=== PATIENT | male | born 1955 ===

== ENCOUNTER 2023-05-18 12:00 | Emergency (ER) | payer MEDICARE, BC ==
[~2023-05-18] VITALS: Ht 170.2 cm; Wt 108.9 kg
[2023-05-18] MEDS ORDERED: DEXA4 PO (12:19)
[2023-05-18] MEDS ORDERED: PRAVASTATIN SOD20 MG PO (12:20)
[2023-05-18] MEDS ORDERED: ONDA4ODT MM (12:20)
[2023-05-18] MEDS ORDERED: DIAZEPAM5 M2 PO (12:20)
[2023-05-18] MEDS ORDERED: OMEP20ER PO (12:21)
[2023-05-18 13:08] LABS: Hematocrit 46.6 % (37.0-53.0); Hemoglobin 15.2 g/dL (13.5-17.5); Mean Corpuscular HGB 31.9 pg (26.0-34.0); Mean Corpuscular HGB Conc 32.6 g/dL (31.5-36.5); Mean Corpuscular Volume 98 fL (80-100); Mean Platelet Volume 9.3 fL (9.1-12.4); Platelet Count 337 K/mm3 (150-400); RDW Coefficient Variation 13.7 % (11.7-14.2); Red Blood Cell Count 4.77 M/mm3 (4.30-5.90); White Blood Cell Count 12.79 K/mm3 (4.00-11.30)
[2023-05-18 13:29] LABS: BAND PERCENT MAN 1 % (0-8); BASOPHILS PERCENT MAN 0 % (0-2); EOSINOPHILS PERCENT MAN 0 % (0-6); LYMPHOCYTES ABSOLUTE MAN 0.38 K/mm3 (0.84-5.20); LYMPHOCYTES PERCENT MAN 3 % (21-46); MONOCYTES ABSOLUTE MAN 1.27 K/mm3 (0.16-1.47); MONOCYTES PERCENT MAN 10 % (4-13); NEUTROPHILS ABSOLUTE MAN 11.12 K/mm3 (1.96-9.15); SEG NEUTROPHILS PERCENT MAN 86 % (41-73); TOTAL CELLS COUNTED 100
[2023-05-18 13:34] LABS: Bun/Creatinine Ratio 28.2 (12.0-20.0); Calcium, Blood 8.9 mg/dL (8.5-10.1); Creatinine, Blood 0.67 mg/dL (0.60-1.20); Potassium, Blood 4.1 mmol/L (3.5-5.5)
[2023-05-18 14:00] VITALS: BP 128/72
== END 2023-05-18 14:31 | disposition home or self-care (01) ==
LOC: ER 12:00
PROVIDERS: Emergency Medicine
DX: R56.9 Unspecified convulsions (principal)
CPT/HCPCS: 80048; 85025; 93005; 93010

== ENCOUNTER 2023-07-06 07:31 | Inpatient (IN) | payer MEDICARE, BC ==
[~2023-07-06] VITALS: Ht 172.7 cm; Wt 114.9 kg
[2023-07-06] VITALS (18 sets, daily range): BP systolic 84–113; BP diastolic 52–69
[~2023-07-06 07:31] MED LIST: DEXA4 PO; DIAZEPAM5 M2 PO; OMEP20ER PO; ONDA4ODT MM; PRAVASTATIN SOD20 MG PO
[2023-07-06 08:34] LABS: BASOPHILS ABSOLUTE AUTO 0.03 K/mm3 (0.00-0.23); BASOPHILS PERCENT AUTO 1 % (0-2); EOSINOPHILS ABSOLUTE AUTO 0.04 K/mm3 (0.00-0.68); EOSINOPHILS PERCENT AUTO 1 % (0-6); Hematocrit 38.1 % (37.0-53.0); Hemoglobin 12.4 g/dL (13.5-17.5); IMMATURE GRAN ABSOLUTE AUTO 0.08 K/mm3 (0.00-0.10); IMMATURE GRAN PERCENT AUTO 1 % (0-1); LYMPHOCYTES ABSOLUTE AUTO 1.73 K/mm3 (0.84-5.20); LYMPHOCYTES PERCENT AUTO 29 % (21-46); MONOCYTES ABSOLUTE AUTO 0.88 K/mm3 (0.16-1.47); MONOCYTES PERCENT AUTO 15 % (4-13); Mean Corpuscular HGB 32.8 pg (26.0-34.0); Mean Corpuscular HGB Conc 32.5 g/dL (31.5-36.5); Mean Corpuscular Volume 101 fL (80-100); Mean Platelet Volume 8.8 fL (9.1-12.4); NEUTROPHILS ABSOLUTE AUTO 3.23 K/mm3 (1.96-9.15); NEUTROPHILS PERCENT AUTO 54 % (41-73); Platelet Count 339 K/mm3 (150-400); RDW Coefficient Variation 14.6 % (11.7-14.2); RDW Standard Deviation 53.3 fL (35.1-46.3); Red Blood Cell Count 3.78 M/mm3 (4.30-5.90); White Blood Cell Count 5.99 K/mm3 (4.00-11.30)
[2023-07-06 08:49] LABS: Base Excess Venous 13.2 mmol/L; Bicarbonate Venous 34.1 mmol/L (24.0-30.0); PCO2 Venous 74.7 mmHg (38-42); pH Blood Venous 7.33 (7.34-7.37)
[2023-07-06 09:20] LABS: Albumin, Blood 3.1 g/dL (3.4-5.0); Bilirubin, Total 0.5 mg/dL (0.1-1.0); Bun/Creatinine Ratio 14.2 (12.0-20.0); Calcium, Blood 8.9 mg/dL (8.5-10.1); Creatinine, Blood 0.71 mg/dL (0.60-1.20); Globulin, Blood 3.2 g/dL (2.2-4.0); Potassium, Blood 3.5 mmol/L (3.5-5.5); Total Protein, Blood 6.3 g/dL (6.4-8.2)
[2023-07-06 09:57] LABS: PCO2 Arterial 66.5 mmHg (35-45); PO2 Arterial 214 mmHg (80-100); pH Blood Arterial 7.37 (7.35-7.45)
[2023-07-06 10:11] LABS: Influenza A, PCR NEGATIVE (NEGATIVE); Influenza B, PCR NEGATIVE (NEGATIVE); Resp Syncytial Virus, PCR NEGATIVE (NEGATIVE); SARS-Cov-2 (COVID-19) PCR, MMC NEGATIVE (NEGATIVE)
[2023-07-06 10:33] LABS: Source, Urine Foley catheter
[2023-07-06 10:40] LABS: Appearance, Urine Clear (Clear); Bilirubin, Urine Neg (Neg); Blood, Urine 1+ (Neg); Color, Urine Yellow (P-Yellow); Glucose Qualitative, Urine 2+ (Neg); Ketones, Urine 1+ (Neg); Leukocyte Esterase, Urine Neg (Neg); Nitrite, Urine Neg (Neg); Protein, Urine 3+ (Neg); Urobilinogen, Urine NORM (Normal)
[2023-07-06 10:46] LABS: Bacteria Rare /hpf; Squamous Epithelial Cells Rare /hpf (Few)
--- NOTE | 2023-07-06 13:45 | NUR ---
ER REPORT RECEVED.
--- NOTE | 2023-07-06 18:14 | NUR ---
Pt seen in ER. having hypoventilation and dyspnea. increasing altered level of conciouness. pt has seizure. and was intubated. conversation with on care needs. She wanted to talk to oncolgy. called office for her. Doctor contacted er physicain. pt kps score 20% Pt son ins coming from out of town.
--- NOTE | 2023-07-06 18:59 | NUR ---
SHIFT SUMMARY: Pt admitted to ICU this afternoon. and son at bedside during admission assessment. Pt opening his eyes to voice now with propofol titrated down. Power glide placed in right upper arm. Good UOP via temp prob craig.
[2023-07-07] VITALS (22 sets, daily range): BP systolic 98–143; BP diastolic 62–78
[2023-07-07 04:24] LABS: BASOPHILS ABSOLUTE AUTO 0.01 K/mm3 (0.00-0.23); BASOPHILS PERCENT AUTO 0 % (0-2); EOSINOPHILS PERCENT AUTO 0 % (0-6); Hematocrit 29.5 % (37.0-53.0); Hemoglobin 10.1 g/dL (13.5-17.5); IMMATURE GRAN ABSOLUTE AUTO 0.06 K/mm3 (0.00-0.10); IMMATURE GRAN PERCENT AUTO 1 % (0-1); LYMPHOCYTES PERCENT AUTO 11 % (21-46); MONOCYTES ABSOLUTE AUTO 0.59 K/mm3 (0.16-1.47); MONOCYTES PERCENT AUTO 11 % (4-13); Mean Corpuscular HGB 32.8 pg (26.0-34.0); Mean Corpuscular HGB Conc 34.2 g/dL (31.5-36.5); Mean Platelet Volume 8.7 fL (9.1-12.4); NEUTROPHILS ABSOLUTE AUTO 4.34 K/mm3 (1.96-9.15); NEUTROPHILS PERCENT AUTO 78 % (41-73); NRBC ABSOLUTE 0.02 K/mm3 (0.00-0.02); NRBC Auto 0.4 /100 WBC (0.0-0.2); Platelet Count 261 K/mm3 (150-400); RDW Coefficient Variation 14.7 % (11.7-14.2); RDW Standard Deviation 50.7 fL (35.1-46.3); Red Blood Cell Count 3.08 M/mm3 (4.30-5.90)
[2023-07-07 04:32] LABS: Mean Corpuscular Volume 96 fL (80-100)
[2023-07-07 04:45] LABS: Albumin, Blood 2.4 g/dL (3.4-5.0); Albumin/Globulin Ratio 0.9 (0.8-1.8); Bilirubin, Total 0.5 mg/dL (0.1-1.0); Bun/Creatinine Ratio 12.3 (12.0-20.0); Calcium, Blood 8.2 mg/dL (8.5-10.1); Creatinine, Blood 0.73 mg/dL (0.60-1.20); Globulin, Blood 2.7 g/dL (2.2-4.0); Magnesium, Blood 2.1 mg/dL (1.6-2.4); Phosphorus, Blood 1.9 mg/dL (2.5-4.9); Potassium, Blood 3.4 mmol/L (3.5-5.5); Total Protein, Blood 5.1 g/dL (6.4-8.2)
--- NOTE | 2023-07-07 07:00 | NUR ---
ASSUME CARE: I have assumed care of this patient.
--- NOTE | 2023-07-07 17:00 | NUR ---
SHIFT SUMMARY: Family at bedside this morning for an update. Trickle feeds started today. Pt opens his eyes to voice and follows commands with RUE. LLE and LUE flaccid. Bucio patent with good UOP. No BM. BPs stable.
--- NOTE | 2023-07-07 18:07 | NUR ---
ASSUMED CARE OF DON AT 1730, CONTINUE WITH PROPOFOL SEDATION AND TRICKLE FEEDS VIA OGT. VENTILATOR SETTINGS UNCHANGED, PT RESPONDS TO REPOSITIONING. ONLY MOVING RUE. IV FLUIDS INFUSING @ 50ML/HR. BILATERAL IV'S HANDS, PG DAVE. LLE WITH ANKLE EDEMA 2+ AND RIGHT WITH 1+, SCD'S IN PLACE.
[2023-07-08] VITALS (23 sets, daily range): BP systolic 112–158; BP diastolic 65–92
[2023-07-08 03:45] LABS: BASOPHILS ABSOLUTE AUTO 0.01 K/mm3 (0.00-0.23); BASOPHILS PERCENT AUTO 0 % (0-2); EOSINOPHILS PERCENT AUTO 0 % (0-6); Hematocrit 28.6 % (37.0-53.0); Hemoglobin 9.5 g/dL (13.5-17.5); IMMATURE GRAN ABSOLUTE AUTO 0.06 K/mm3 (0.00-0.10); IMMATURE GRAN PERCENT AUTO 1 % (0-1); LYMPHOCYTES ABSOLUTE AUTO 0.62 K/mm3 (0.84-5.20); LYMPHOCYTES PERCENT AUTO 10 % (21-46); MONOCYTES ABSOLUTE AUTO 0.65 K/mm3 (0.16-1.47); MONOCYTES PERCENT AUTO 10 % (4-13); Mean Corpuscular HGB 32.4 pg (26.0-34.0); Mean Corpuscular HGB Conc 33.2 g/dL (31.5-36.5); Mean Corpuscular Volume 98 fL (80-100); Mean Platelet Volume 9.1 fL (9.1-12.4); NEUTROPHILS ABSOLUTE AUTO 5.01 K/mm3 (1.96-9.15); NEUTROPHILS PERCENT AUTO 79 % (41-73); NRBC ABSOLUTE 0.03 K/mm3 (0.00-0.02); NRBC Auto 0.5 /100 WBC (0.0-0.2); Platelet Count 245 K/mm3 (150-400); RDW Standard Deviation 54.2 fL (35.1-46.3); Red Blood Cell Count 2.93 M/mm3 (4.30-5.90); White Blood Cell Count 6.35 K/mm3 (4.00-11.30)
[2023-07-08 04:09] LABS: Bun/Creatinine Ratio 15.4 (12.0-20.0); Calcium, Blood 8.2 mg/dL (8.5-10.1); Creatinine, Blood 0.65 mg/dL (0.60-1.20); Phosphorus, Blood 2.9 mg/dL (2.5-4.9)
--- NOTE | 2023-07-08 07:30 | NUR ---
ASSUMED CARE OF PATIENT AT 0700 FROM [facility]EL. PT REMAINS ON VENTILATOR 16/490/ PEEP 8 AND FIO2 30%, PROPOFOL @ 30MCG/KG AND PT RESPONDS TO VERBAL STIMULI. PT WILL SQUEEZE LEFT HAND, NO OTHER MOVEMENT. RIGHT HAND WILL USE FOR TAPPING ON THE RAIL. SCD'S IN PLACE.
--- NOTE | 2023-07-08 12:03 | NUR ---
MADE HER ROUNDS AND SUGGESTED THAT THE PT HAVE A WEANING TRIAL. PT'S SEDATION WAS TURNED OFF AT 1029. HE THEN BEGAN COMMUNICATING WITH ME AROUND 1045. ANAT WAS CALLED TO ASSIST WITH THE WEANING TRIAL. CONTINUED TO COMMUNICATE VIA PEN AND PAPER. FAMILY DID COME IN AND THEY WERE UPDATED TO THE SITUATION. AFTER A SUCCESSFUL TRIAL AND RE-EVALUATING, PT IS EXTUBATED AT 1135 TO NC 3L. HE IS ENCOURAGED TO TRY TO BREATHE DEEPER AND SLOWER. HIS SATS >90%. FAMILY REMAINS AT BEDSIDE. SCD'S REMOVED AT THIS TIME PER PATIENT REQUEST.
--- NOTE | 2023-07-08 16:43 | NUR ---
JANETTE IS ABLE TO MOVE HIS RIGHT ARM AND USE THE CALL LIGHT, THE BED ADJUST AND HAS BEEN ABLE TO SWALLOW ICE CHIPS WITHOUT INCIDENT. HE CONTINUES ON 3L/NC. WITH SATS 89-90%, TO THIS HE REPLIES "THAT'S ABOUT NORMAL".
--- NOTE | 2023-07-08 18:21 | NUR ---
JANETTE HAS BEEN EXTUBATED THIS SHIFT. HE HAS BEEN ON 3L/NC T/O THE AFTERNOON. HE IS ASKING TO BE PLACED ON THE BIPAP FOR THE NIGHT. ORDERED FOR HIM TO USE IT NECESSARY T/O THE NOC TO MAINTAIN SATS >90%. LEFT SIDE REMAINS FLACCID, RIGHT ARM FULL USE AND PT IS ABLE TO COMMUNICATE NEEDS, ALSO USING CONTROLS FOR BED. HE HAS BEEN ABLE TO TAKE IN ICE CHIPS AND SWALLOWS WITHOUT CHOKING. PG DAVE, PIV BILAT HANDS. LEFT ANKLE EDEMATOUS, N/T PRESENT. NS @ 50ML/HR. PLEASANT AND ENTERTAINING.
[2023-07-09] VITALS: BP 129/99
[2023-07-09 03:47] LABS: BASOPHILS ABSOLUTE AUTO 0.01 K/mm3 (0.00-0.23); BASOPHILS PERCENT AUTO 0 % (0-2); EOSINOPHILS PERCENT AUTO 0 % (0-6); Hematocrit 29.3 % (37.0-53.0); Hemoglobin 9.5 g/dL (13.5-17.5); IMMATURE GRAN ABSOLUTE AUTO 0.09 K/mm3 (0.00-0.10); IMMATURE GRAN PERCENT AUTO 1 % (0-1); LYMPHOCYTES ABSOLUTE AUTO 0.53 K/mm3 (0.84-5.20); LYMPHOCYTES PERCENT AUTO 7 % (21-46); MONOCYTES ABSOLUTE AUTO 0.79 K/mm3 (0.16-1.47); MONOCYTES PERCENT AUTO 10 % (4-13); Mean Corpuscular HGB 32.1 pg (26.0-34.0); Mean Corpuscular HGB Conc 32.4 g/dL (31.5-36.5); Mean Corpuscular Volume 99 fL (80-100); Mean Platelet Volume 9.1 fL (9.1-12.4); NEUTROPHILS ABSOLUTE AUTO 6.21 K/mm3 (1.96-9.15); NEUTROPHILS PERCENT AUTO 81 % (41-73); NRBC ABSOLUTE 0.02 K/mm3 (0.00-0.02); NRBC Auto 0.3 /100 WBC (0.0-0.2); Platelet Count 266 K/mm3 (150-400); RDW Coefficient Variation 15.3 % (11.7-14.2); RDW Standard Deviation 54.5 fL (35.1-46.3); Red Blood Cell Count 2.96 M/mm3 (4.30-5.90); White Blood Cell Count 7.63 K/mm3 (4.00-11.30)
[2023-07-09 03:53] LABS: Bicarbonate Venous 27.5 mmol/L (24.0-30.0); PCO2 Venous 45.3 mmHg (38-42); pH Blood Venous 7.41 (7.34-7.37)
[2023-07-09 04:00] VITALS: BP 137/77
[2023-07-09 04:04] LABS: Albumin, Blood 2.5 g/dL (3.4-5.0); Anion Gap 3 mmol/L (6-16); Blood Urea Nitrogen 14 mg/dL (8-24); Bun/Creatinine Ratio 19.3 (12.0-20.0); CO2, Blood 30 mmol/L (21-32); Calcium, Blood 8.3 mg/dL (8.5-10.1); Chloride, Blood 115 mmol/L (98-108); Creatinine, Blood 0.73 mg/dL (0.60-1.20); Glomerular Filtration Rate 100 (60-); Glucose, Blood 121 mg/dL (70-99); Phosphorus, Blood 3.8 mg/dL (2.5-4.9); Potassium, Blood 3.8 mmol/L (3.5-5.5); Sodium, Blood 148 mmol/L (136-145)
[2023-07-09 08:01] VITALS: BP 147/87
[2023-07-09 11:51] VITALS: BP 151/91
[2023-07-09 15:06] VITALS: BP 146/81
--- NOTE | 2023-07-09 17:48 | NUR ---
SHIFT SUMMARY PT IS A&OX4, CALLS APPROPRIATELY, AND CAN MAKE HIS NEEDS KNOWN. HE DOES HAVE LEFT SIDED DEFICIT, AND DEFICIT W/ SIGHT IN HIS RIGHT EYE. THESE ARE CHRONIC.HE IS A 3P MOD/MAX ASSIST FOR TRANSFER AND HE HAS A SPECIAL WALKER TO ASSIST W/ HE LEFT SIDED DEFICIT. HIS ALBARADO WAS D/C'D THIS AM AND HE IS ABLE TO USE THE URINAL. HE GET SOB WHEN LAYING FLAT AND NORMALLY SLEEPS IN A RECLINE AT HOME . HE HAS BEEN BETWEEN THE BIPAP 05/31 @35% OR 3-5L NC. PT HAS BEEN SR ON TELE AND HAS HAD NO CARDIAC EVENTS. PT WAS TRANSFERED FROM ICU 10 TO PCU 17 THIS AFTERNOON. NO ACUTE EVENTS. FIRE IGNITION RISK HAS BEEN ASSESSED, EDUCATION PROVIDED. FIRE IGNITION RISK HAS BEEN ASSESSED AND EDUCATION PROVIDED.
[2023-07-09 19:54] VITALS: BP 142/84
--- NOTE | 2023-07-09 23:40 | NUR ---
ASSUMPTION OF CARE THIS RN ASSUMED CARE AT APPROX 1915. PATIENT IS ALERT AND ORIENTED X4. USING BEDSIDE COMMODE AT ASSUMPTION OF CARE, REQUESTING TO TRANSFER TO RECLINER CHAIR. IN ADDITION TO TWO OTHER RN's, THIS RN ASSISTED PATIENT TO RECLINER WITH GAIT BELT AND WALKER. VOIDED. CURRENTLY REMAINS IN RECLINER CHAIR HE SLEEPS IN A RECLINER AT HOME. ABLE TO COMMUNICATE NEEDS EFFECTIVELY NEEDED. VSS. TELEMETRY SHOWING SINUS 60's-70's. BP STABLE. DENIES CHEST PAIN OR PRESSURE. USES BIPAP MASK WHILE SLEEPING 10/5 FIO2 35%, SATS >90%. WHILE AWAKE, PATIENT IS ON 5-6L VIA NASAL CANNULA. URINAL WITHIN REACH. IVF INFUSING PER EMAR. CALL LIGHT IN REACH.
[2023-07-10 00:30] VITALS: BP 132/79
[2023-07-10 03:02] VITALS: BP 136/81
[2023-07-10 04:25] LABS: BASOPHILS ABSOLUTE AUTO 0.03 K/mm3 (0.00-0.23); BASOPHILS PERCENT AUTO 1 % (0-2); EOSINOPHILS PERCENT AUTO 0 % (0-6); Hematocrit 33.3 % (37.0-53.0); Hemoglobin 10.6 g/dL (13.5-17.5); IMMATURE GRAN ABSOLUTE AUTO 0.13 K/mm3 (0.00-0.10); IMMATURE GRAN PERCENT AUTO 2 % (0-1); LYMPHOCYTES ABSOLUTE AUTO 0.54 K/mm3 (0.84-5.20); LYMPHOCYTES PERCENT AUTO 9 % (21-46); MONOCYTES ABSOLUTE AUTO 0.92 K/mm3 (0.16-1.47); MONOCYTES PERCENT AUTO 15 % (4-13); Mean Corpuscular HGB 32.4 pg (26.0-34.0); Mean Corpuscular HGB Conc 31.8 g/dL (31.5-36.5); Mean Corpuscular Volume 102 fL (80-100); Mean Platelet Volume 9.2 fL (9.1-12.4); NEUTROPHILS ABSOLUTE AUTO 4.56 K/mm3 (1.96-9.15); NEUTROPHILS PERCENT AUTO 74 % (41-73); NRBC ABSOLUTE 0.05 K/mm3 (0.00-0.02); NRBC Auto 0.8 /100 WBC (0.0-0.2); Platelet Count 247 K/mm3 (150-400); RDW Coefficient Variation 15.2 % (11.7-14.2); RDW Standard Deviation 56.9 fL (35.1-46.3); Red Blood Cell Count 3.27 M/mm3 (4.30-5.90); White Blood Cell Count 6.18 K/mm3 (4.00-11.30)
--- NOTE | 2023-07-10 04:50 | NUR ---
SHIFT SUMMARY NO ACUTE CHANGES SINCE PREVIOUS ASSUMPTION OF CARE NOTE. PATIENT REMAINS ALERT AND ORIENTED X4. SLEPT THROUGHOUT SHIFT IN RECLINER CHAIR, EASILY AROUSABLE TO VERBAL STIMULI. ABLE TO COMMUNICATE NEEDS EFFECTIVELY. COOPERATIVE WITH CARE. VS REMAIN STABLE. TELEMETRY CONTINUING TO SHOW SINUS 60's-70's. ON BIPAP THROUGHOUT SHIFT, 05/31 FI02 45%. SATS >95%. REGULAR REPOSITIONING IN RECLINER CHAIR. IS ABLE TO REPOSITION HIMSELF WITH MINIMAL ASSIST AT TIMES. USES URINAL INDEPENDENTLY, VOIDING. NO BOWEL MOVEMENT THIS SHIFT. CALL LIGHT IN REACH. WILL REPORT TO ONCOMING RN.
[2023-07-10 05:10] LABS: Albumin, Blood 2.4 g/dL (3.4-5.0); Anion Gap 3 mmol/L (6-16); Blood Urea Nitrogen 17 mg/dL (8-24); Bun/Creatinine Ratio 24.3 (12.0-20.0); CO2, Blood 29 mmol/L (21-32); Calcium, Blood 8.6 mg/dL (8.5-10.1); Chloride, Blood 113 mmol/L (98-108); Glomerular Filtration Rate 102 (60-); Glucose, Blood 120 mg/dL (70-99); Phosphorus, Blood 3.1 mg/dL (2.5-4.9); Sodium, Blood 145 mmol/L (136-145)
[2023-07-10 07:36] VITALS: BP 138/79
[2023-07-10 09:54] LABS: Base Excess Venous 4.1 mmol/L; Bicarbonate Venous 26.9 mmol/L (24.0-30.0); PCO2 Venous 57.2 mmHg (38-42); pH Blood Venous 7.33 (7.34-7.37)
[2023-07-10 11:42] VITALS: BP 107/89
[2023-07-10 15:46] VITALS: BP 136/88
--- NOTE | 2023-07-10 18:38 | NUR ---
SHIFT SUMMARY: PT HAS BEEN A&Ox4, COOPERATIVE W/CARE, ANSWERING QUESTIONS APPROPRIATELY. PT REPORTS CHRONIC SOB, DENIES INCREASED SOB FROM HIS BASELINE, O2 SATS >92% ON 2-3 L/MIN NC. BIPAP AT BEDSIDE. TELEMETRY HAS BEEN DC'd, VS HAVE BEEN STABLE. PT SPENDS MOST OF THE DAY IN RECLINER, WORKS WITH PT/OT TODAY AND HAS BEEN A 3 PERSON ASSIST WITH A WALKER FOR TRANSFERS DUE TO HIS L SIDE DEFICIT. AT THIS TIME, PT IS RESTING QUIETLY IN ROOM W/CALL LIGHT IN REACH. WILL CONTINUE TO MONITOR AND TREAT ACCORDINGLY UNTIL CHANGE OF SHIFT.
[2023-07-10 19:51] VITALS: BP 124/84
--- NOTE | 2023-07-10 21:19 | NUR ---
ASSUMPTION OF CARE THIS RN ASSUMED CARE AT APPROX 1915. PATIENT ALERT AND ORIENTED X4. PLEASANT, MOTIVATED, AND COOPERATIVE WITH CARE. ABLE TO COMMUNICATE NEEDS EFFECTIVELY NEEDED. VSS. IS MEDICAL STATUS WITHOUT TELEMETRY. DENIES CHEST PAIN OR PRESSURE. BP STABLE. AT ASSUMPTION OF CARE PATIENT ON 3L VIA NASAL CANNULA, SATS >90%. SOME SHORTNESS OF BREATH WHILE SITTING IN CHAIR, PATIENT REPORTS BASELINE SHORTNESS OF BREATH. IS CURRENTLY ON BIPAP 05/31 FI02 45% TO SLEEP, SATS REMAIN >90%. VOIDING. URINAL WITHIN REACH. CHOOSING TO SLEEP IN RECLINER CHAIR. IS ABLE TO REPOSITION HIMSELF WITH MINIMAL ASSIST. CALL LIGHT IN REACH.
[2023-07-11 04:00] VITALS: BP 113/71
--- NOTE | 2023-07-11 05:32 | NUR ---
SHIFT SUMMARY NO ACUTE CHANGES SINCE ASSUMPTION OF CARE NOTE. PATIENT REMAINS ALERT AND ORIENTED X4. SLEPT IN RECLINER THROUGHOUT SHIFT, EASILY AROUSABLE TO VERBAL STIMULI. ABLE TO COMMUNICATE NEEDS EFFECTIVELY NEEDED. VS REMAIN STABLE. USED BIPAP WHILE SLEEPING, 05/31 FI02 45%. SATS >90%. VOIDING. NO BM THIS SHIFT. ABLE TO REPOSITION HIMSELF WITH MINIMAL ASSIST. CALL LIGHT IN REACH. WILL REPORT TO ONCOMING RN.
[2023-07-11 07:09] LABS: BASOPHILS ABSOLUTE AUTO 0.02 K/mm3 (0.00-0.23); BASOPHILS PERCENT AUTO 0 % (0-2); EOSINOPHILS PERCENT AUTO 0 % (0-6); Hematocrit 32.6 % (37.0-53.0); Hemoglobin 10.7 g/dL (13.5-17.5); IMMATURE GRAN PERCENT AUTO 2 % (0-1); LYMPHOCYTES PERCENT AUTO 10 % (21-46); MONOCYTES ABSOLUTE AUTO 0.97 K/mm3 (0.16-1.47); MONOCYTES PERCENT AUTO 20 % (4-13); Mean Corpuscular HGB 32.9 pg (26.0-34.0); Mean Corpuscular HGB Conc 32.8 g/dL (31.5-36.5); Mean Corpuscular Volume 100 fL (80-100); Mean Platelet Volume 9.4 fL (9.1-12.4); NEUTROPHILS PERCENT AUTO 67 % (41-73); NRBC ABSOLUTE 0.03 K/mm3 (0.00-0.02); NRBC Auto 0.6 /100 WBC (0.0-0.2); Platelet Count 229 K/mm3 (150-400); RDW Coefficient Variation 15.1 % (11.7-14.2); RDW Standard Deviation 55.3 fL (35.1-46.3); Red Blood Cell Count 3.25 M/mm3 (4.30-5.90); White Blood Cell Count 4.79 K/mm3 (4.00-11.30)
[2023-07-11 07:29] LABS: Albumin, Blood 2.6 g/dL (3.4-5.0); Anion Gap 5 mmol/L (6-16); Blood Urea Nitrogen 16 mg/dL (8-24); Bun/Creatinine Ratio 25.2 (12.0-20.0); CO2, Blood 32 mmol/L (21-32); Calcium, Blood 8.7 mg/dL (8.5-10.1); Chloride, Blood 107 mmol/L (98-108); Creatinine, Blood 0.63 mg/dL (0.60-1.20); Glomerular Filtration Rate 105 (60-); Glucose, Blood 117 mg/dL (70-99); Potassium, Blood 3.8 mmol/L (3.5-5.5); Sodium, Blood 144 mmol/L (136-145)
[2023-07-11 07:56] VITALS: BP 133/79
--- NOTE | 2023-07-11 09:50 | NUR ---
AM NOTE: PATIENT ALERT AND ORIENTED X4. ABLE TO MAKE NEEDS KNOWN. SITTING UP IN RECLINER THIS AM. OCCUPATIONAL THERAPY IN TO ASSESS. UP TO BSC WITH 3 PERSON MAX ASSIST DUE TO LEFT SIDED DEFICIT. DENIES NUMBNESS/TINGLING. PATIENT REPORTS HISTORY OF MS AND BRAIN TUMOR THAT WAS RECENTLY RESECTED IN NOVEMBER. SINCE BRAIN TUMOR RESECTION LEFT SIDED DEFICIT HAS WORSENED AND PATIENT HAS HAD EPISODES OF SEIZURES. LEFT UPPER AND LOWER EXTREMITY FLACCID. USING SPECIALIZED WALKER AND STAND/PIVOT TO BSC. ON BASELINE 2L NASAL CANNULA SATING MID 90'S. LUNGS SOUNDING CLEAR AND DIM IN BASES. DENIES COUGH/SOB. OCCASIONAL CONGESTION. IV LASIX GIVEN PER EMAR. EATING AND VOIDING WNL. USING URINAL TO VOID. BOWEL TONES PRESENT. DENIES ABDOMINAL PAIN/NAUSEA. SKIN OVERALL C/D/I. SOME REDNESS NOTED TO LLE. CALL LIGHT IN REACH. PATIENT PLACED CALL TO ROBERT THIS AM TO UPDATE. THIS RN AT BEDSIDE FOR PROVIDER ROUNDING. NO NEW ORDERS FROM DR. GONZALEZ.
[2023-07-11 11:06] VITALS: BP 128/81
[2023-07-11 15:02] VITALS: BP 125/82
--- NOTE | 2023-07-11 18:50 | NUR ---
TRANSFER: PATIENT TRANSFER TO 331. NO ACUTE CHANGES, SEE PREVIOUS NOTES. PATIENT LEFT UNIT IN RECLINER WITH ALL PERSONAL BELONGINGS AND CHART. REPORTED OFF TO MED FLOOR RN.
--- NOTE | 2023-07-11 19:04 | NUR ---
pt transfered from [facility]cu. sitting in chair. able to make needs known. 2lnc
--- NOTE | 2023-07-12 04:07 | NUR ---
SHIFT SUMMARY PATIENT HAD NO ACUTE CHANGES. AXOX 4 AND 3-4 ASSIST WITH GB/FWW TO BSC. LEFT SIDE FLACID. POWERGLIDE TOMMY ARM INTACT. ON 2L O2 NC. DENIES CHEST PAIN, SOB, AND N/V. VSS/AFEBRILE. COOPERATIVE WITH CARE. CALL LIGHT IN REACH. BED IN LOWEST POSITION. WILL CONTINUE TO MONITOR UNTIL DAY SHIFT NURSE ASSUMES CARE.
[2023-07-12 04:38] VITALS: BP 121/74
[2023-07-12 05:30] LABS: BASOPHILS ABSOLUTE AUTO 0.01 K/mm3 (0.00-0.23); BASOPHILS PERCENT AUTO 0 % (0-2); EOSINOPHILS ABSOLUTE AUTO 0.01 K/mm3 (0.00-0.68); EOSINOPHILS PERCENT AUTO 0 % (0-6); Hematocrit 34.1 % (37.0-53.0); Hemoglobin 11.3 g/dL (13.5-17.5); IMMATURE GRAN ABSOLUTE AUTO 0.08 K/mm3 (0.00-0.10); IMMATURE GRAN PERCENT AUTO 2 % (0-1); LYMPHOCYTES ABSOLUTE AUTO 0.51 K/mm3 (0.84-5.20); LYMPHOCYTES PERCENT AUTO 10 % (21-46); MONOCYTES ABSOLUTE AUTO 1.16 K/mm3 (0.16-1.47); MONOCYTES PERCENT AUTO 23 % (4-13); Mean Corpuscular HGB Conc 33.1 g/dL (31.5-36.5); Mean Corpuscular Volume 100 fL (80-100); Mean Platelet Volume 9.1 fL (9.1-12.4); NEUTROPHILS PERCENT AUTO 65 % (41-73); Platelet Count 222 K/mm3 (150-400); RDW Coefficient Variation 14.9 % (11.7-14.2); Red Blood Cell Count 3.42 M/mm3 (4.30-5.90); White Blood Cell Count 5.07 K/mm3 (4.00-11.30)
[2023-07-12 06:20] LABS: Albumin, Blood 2.7 g/dL (3.4-5.0); Anion Gap 4 mmol/L (6-16); Blood Urea Nitrogen 16 mg/dL (8-24); Bun/Creatinine Ratio 26.3 (12.0-20.0); CO2, Blood 34 mmol/L (21-32); Calcium, Blood 8.8 mg/dL (8.5-10.1); Chloride, Blood 104 mmol/L (98-108); Creatinine, Blood 0.61 mg/dL (0.60-1.20); Glomerular Filtration Rate 106 (60-); Glucose, Blood 124 mg/dL (70-99); Phosphorus, Blood 3.1 mg/dL (2.5-4.9); Potassium, Blood 3.7 mmol/L (3.5-5.5); Sodium, Blood 142 mmol/L (136-145)
[2023-07-12 08:08] VITALS: BP 131/83
--- NOTE | 2023-07-12 09:00 | NUR ---
pt sitting up in recliner chair, needed to get up to bsc urgently, had a loose stool, a/ox4, pleasant and cooperative with care, follows commands well, denies pain except some cramping in lowe quads, lungs are very dim on right side radha base, clear on left upper field, more dim in base, but can still hear air movement, on 2 liters o2 via n/c, resp even and unlabored, no cough noted, hrr, 4+ edema noted to b/l le, cap refill <3 sec, vs stable, afebrile, iv site is clear and patent, btx4, abd large soft some cramping btx4, hyperactive, skin has a bruise to left back, left side is flacid, max assist to constanzasferrenae, call light in reach.
[2023-07-12 16:11] VITALS: BP 125/87
[2023-07-12] MEDS ORDERED: ALUMINUM H320 MG/5 M PO (16:23)
[2023-07-12] MEDS ORDERED: AMOCLA875 PO (16:24)
[2023-07-12] MEDS ORDERED: FURO20 PO (16:25)
[2023-07-12] MEDS ORDERED: LEVE500 PO (16:25)
[2023-07-12] MEDS ORDERED: PANT20 PO (16:26)
[2023-07-12 16:30] LABS: SARS-Cov-2 (COVID-19) PCR, MMC NEGATIVE (NEGATIVE)
--- NOTE | 2023-07-12 18:01 | NUR ---
pt is being transfered to [facility] for rehab. iv removed intact, left via gurney with transport, in room and will meet him there. egg crate given for comfort. has all belongings.
== END 2023-07-12 17:57 | DRG 100 ==
LOC: ER 07:31 → MEDS 13:18 → ICUE 13:18 → PCU 07-09 13:56 → MEDS 07-11 18:37
PROVIDERS: Emergency Medicine; Internal Medicine; Internal Medicine Critical Care Medicine; Student in an Organized Health Care Education/Training Program; ADMIT Internal Medicine
PROC: 5A1945Z Respiratory Ventilation, 24-96 Consecutive Hours (ICD-10-PCS; principal; 2023-07-06)
PROC: 0BH17EZ Insertion of Endotracheal Airway into Trachea, Via Natural or Artificial Opening (ICD-10-PCS; 2023-07-06)
PROC: 0DH67UZ Insertion of Feeding Device into Stomach, Via Natural or Artificial Opening (ICD-10-PCS; 2023-07-06)
PROC: 0T9B70Z Drainage of Bladder with Drainage Device, Via Natural or Artificial Opening (ICD-10-PCS; 2023-07-06)
PROC: 5A09357 Assistance with Respiratory Ventilation, Less than 24 Consecutive Hours, Continuous Positive Airway Pressure (ICD-10-PCS; 2023-07-10)
DX: G40.219 Localization-related (focal) (partial) symptomatic epilepsy and epileptic syndromes with complex partial seizures, intractable, without status epilepticus (principal); J96.01 Acute respiratory failure with hypoxia; J96.02 Acute respiratory failure with hypercapnia; G81.94 Hemiplegia, unspecified affecting left nondominant side; E87.20 Acidosis, unspecified; J98.11 Atelectasis; R73.9 Hyperglycemia, unspecified; E87.6 Hypokalemia; E83.39 Other disorders of phosphorus metabolism; G35 Multiple sclerosis; W18.30XA Fall on same level, unspecified, initial encounter; Z85.841 Personal history of malignant neoplasm of brain; Z98.890 Other specified postprocedural states; Z79.899 Other long term (current) drug therapy; Z11.52 Encounter for screening for COVID-19
CPT/HCPCS: 0241U; 31500; 36415; 36600; 51702; 70450; 71045; 80048; 80053; 80069; 81001; 82803; 82947; 83605; 83735; 83880; 84100; 84145; 85025; 87040; 87070; 87205; 93005; 93010; 94002; 94003; 94640; 94660; 94664; 94762; 96361-59; 96365-59; 96367-59; 96375-59; 97110; 97140; 97163; 97166; 97530; 97535; 99291-25; 99292; A9270; C1751; C9113; J0696; J1100; J1650; J1940; J1953; J2060; J2250; J2543; J2704; J3010; J3480; J7030; J7050; J7060; U0002

== ENCOUNTER 2023-07-28 08:25 | Inpatient (IN) | payer MEDICARE, BC ==
[~2023-07-28] VITALS: Ht 170.2 cm; Wt 110.8 kg
[2023-07-28] VITALS (12 sets, daily range): BP systolic 87–115; BP diastolic 51–84
[~2023-07-28 08:25] MED LIST changes: +ALUMINUM H320 MG/5 M PO; +AMOCLA875 PO; +FURO20 PO; +LEVE500 PO; +PANT20 PO
[2023-07-28 09:02] LABS: Hematocrit 24.2 % (37.0-53.0); Hemoglobin 8.4 g/dL (13.5-17.5); Mean Corpuscular HGB Conc 34.7 g/dL (31.5-36.5); Mean Corpuscular Volume 98 fL (80-100); Mean Platelet Volume 10.7 fL (9.1-12.4); NRBC ABSOLUTE 0.04 K/mm3 (0.00-0.02); NRBC Auto 4.3 /100 WBC (0.0-0.2); Red Blood Cell Count 2.47 M/mm3 (4.30-5.90)
[2023-07-28 09:10] LABS: Albumin, Blood 2.2 g/dL (3.4-5.0); Albumin/Globulin Ratio 0.7 (0.8-1.8); Bilirubin, Total 0.5 mg/dL (0.1-1.0); Bun/Creatinine Ratio 26.1 (12.0-20.0); Calcium, Blood 8.7 mg/dL (8.5-10.1); Creatinine, Blood 0.69 mg/dL (0.60-1.20); Globulin, Blood 3.1 g/dL (2.2-4.0); Potassium, Blood 3.1 mmol/L (3.5-5.5); Total Protein, Blood 5.3 g/dL (6.4-8.2); White Blood Cell Count 0.93 K/mm3 (4.00-11.30)
[2023-07-28 09:11] LABS: Platelet Count 35 K/mm3 (150-400)
[2023-07-28 09:18] LABS: BASOPHILS PERCENT MAN 0 % (0-2); BLASTS PERCENT MAN 4 % (0-0); EOSINOPHILS PERCENT MAN 0 % (0-6); LYMPHOCYTES % ATYPICAL MANUAL 4 % (0-0); LYMPHOCYTES ABSOLUTE MAN 0.63 K/mm3 (0.84-5.20); LYMPHOCYTES PERCENT MAN 64 % (21-46); METAMYELOCYTE ABSOLUTE MAN 0.03 K/mm3 (0.00-0.00); METAMYELOCYTE PERCENT MAN 4 % (0-0); MONOCYTES ABSOLUTE MAN 0.07 K/mm3 (0.16-1.47); MONOCYTES PERCENT MAN 8 % (4-13); MYELOCYTE ABSOLUTE MAN 0.03 K/mm3 (0.00-0.00); MYELOCYTE PERCENT MAN 4 % (0-0); NEUTROPHILS ABSOLUTE MAN 0.07 K/mm3 (1.96-9.15); PROMYELOCYTE ABSOLUTE MAN 0.03 K/mm3 (0.00-0.00); PROMYELOCYTE PERCENT MAN 4 % (0-0); SEG NEUTROPHILS PERCENT MAN 8 % (41-73); TOTAL CELLS COUNTED 25
[2023-07-28 11:30] LABS: Source, Urine Clean Catch
[2023-07-28 11:36] LABS: Appearance, Urine Clear (Clear); Bilirubin, Urine Neg (Neg); Blood, Urine 1+ (Neg); Color, Urine Yellow (P-Yellow); Glucose Qualitative, Urine 3+ (Neg); Ketones, Urine Neg (Neg); Leukocyte Esterase, Urine Neg (Neg); Nitrite, Urine Neg (Neg); Protein, Urine 2+ (Neg); Urobilinogen, Urine NORM (Normal)
[2023-07-28 12:42] LABS: Amorphous Light (0-Heavy); Mucus Heavy (0-Heavy)
[2023-07-28 12:43] LABS: Spermatozoa Rare /hpf
[2023-07-28 12:45] LABS: Red Blood Cells, Urine 0-2 /hpf (0-2)
[2023-07-28 12:46] LABS: Squamous Epithelial Cells Rare /hpf (Few)
[2023-07-28 12:47] LABS: Bacteria Mod /hpf; Transitional Epithelial Cells Rare /hpf (0-Rare)
--- NOTE | 2023-07-28 19:34 | NUR ---
Admit/ End of shift note. Pt admitted from the ED to room [id number]. Pt was oriented to call light system. Powerglide was placed to LUE. Some complaints of left knee and back pain. Treated with IV pain meds. Pt remains on 5L O2. Pt is able to make needs known, call light is within reach.
[2023-07-29] VITALS (12 sets, daily range): BP systolic 83–146; BP diastolic 56–81
[2023-07-29 04:08] LABS: Hematocrit 20.4 % (37.0-53.0); Hemoglobin 6.7 g/dL (13.5-17.5); Mean Corpuscular HGB 33.7 pg (26.0-34.0); Mean Corpuscular HGB Conc 32.8 g/dL (31.5-36.5); Mean Platelet Volume 10.6 fL (9.1-12.4); NRBC ABSOLUTE 0.04 K/mm3 (0.00-0.02); NRBC Auto 2.8 /100 WBC (0.0-0.2); Platelet Count 51 K/mm3 (150-400); RDW Coefficient Variation 14.4 % (11.7-14.2); RDW Standard Deviation 53.7 fL (35.1-46.3); Red Blood Cell Count 1.99 M/mm3 (4.30-5.90); White Blood Cell Count 1.41 K/mm3 (4.00-11.30)
[2023-07-29 04:15] LABS: Mean Corpuscular Volume 103 fL (80-100)
[2023-07-29 04:35] LABS: Albumin, Blood 1.7 g/dL (3.4-5.0); Albumin/Globulin Ratio 0.6 (0.8-1.8); Bilirubin, Total 0.9 mg/dL (0.1-1.0); Bun/Creatinine Ratio 27.2 (12.0-20.0); Creatinine, Blood 0.73 mg/dL (0.60-1.20); Potassium, Blood 4.1 mmol/L (3.5-5.5); Total Protein, Blood 4.7 g/dL (6.4-8.2)
[2023-07-29 04:50] LABS: BAND PERCENT MAN 15 % (0-8); BASOPHILS ABSOLUTE MAN 0.01 K/mm3 (0.00-0.23); BASOPHILS PERCENT MAN 1 % (0-2); BLASTS PERCENT MAN 1 % (0-0); EOSINOPHILS PERCENT MAN 0 % (0-6); LYMPHOCYTES % ATYPICAL MANUAL 1 % (0-0); LYMPHOCYTES ABSOLUTE MAN 0.57 K/mm3 (0.84-5.20); LYMPHOCYTES PERCENT MAN 40 % (21-46); METAMYELOCYTE ABSOLUTE MAN 0.02 K/mm3 (0.00-0.00); METAMYELOCYTE PERCENT MAN 2 % (0-0); MONOCYTES ABSOLUTE MAN 0.31 K/mm3 (0.16-1.47); MONOCYTES PERCENT MAN 22 % (4-13); MYELOCYTE ABSOLUTE MAN 0.02 K/mm3 (0.00-0.00); MYELOCYTE PERCENT MAN 2 % (0-0); NEUTROPHILS ABSOLUTE MAN 0.43 K/mm3 (1.96-9.15); SEG NEUTROPHILS PERCENT MAN 16 % (41-73); TOTAL CELLS COUNTED 100
--- NOTE | 2023-07-29 05:01 | NUR ---
END OF SHIFT NOTE: PT HAS SLEPT FOR MAJORITY OF THE NIGHT. A&OX4, FORGETFUL REGARDING SOME SMALL DETAILS. ABLE TO CALL APPROPRIATELY AND MAKE NEEDS KNOWN TO STAFF. HR 80-100'S, SR/ST ON TELE. SBP 100'S, MAP >65. DENIES CHEST PAIN/PRESSURE. SPO2 >93% ON 5L VIA NC, CPAP WHILE SLEEPING. AFEBRILE. C/O PAIN IN LEFT KNEE AT START OF SHIFT, IMPROVEMENT W/ REPOSITIONING, REST, AND MEDICATION PER EMAR. AM HGB 6.7, MD NOTIFIED; ORDERS TO TRANSFUSE 1U PRBC'S. BLOOD CONSENT OBTAINED. ABLE TO VOID IN URINAL, NO BM'S THIS SHIFT. TOLERATING PO INTAKE WELL. REPOSITIONED T/O THE NIGHT. NEUTROPENIC PRECAUTIONS IN PLACE. NO OTHER EVENTS. CALL LIGHT WITHIN REACH, BED IN LOWEST POSITION. WILL REPORT TO ONCOMING RN.
[2023-07-29 11:40] LABS: Hematocrit 25.2 % (37.0-53.0); Hemoglobin 8.4 g/dL (13.5-17.5)
--- NOTE | 2023-07-29 18:35 | NUR ---
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 TO TRANSFER HIS IS A MAX THREE PERSON ASSIST W/ A MODIFIED FWW. HE HAS BEEN ON 3L N TODAY OR ON HIS CPAP. DR. SHARPE ENCOURAGED HIM TO BE ON HIS CPAP WHEN HE IS RESTING, EVEN DURING THE DAY. HE HAS BEEN SOB A FEW TIMES TODAY. DURING HE PE STUDY HE WAS SOB AND WE PUT HIM ON 6L NC BECUASE HE WAS VERY ANXIOUS. HE GOT SOB WHEN TURNING IN BED DURING HIS BEDBATH WELL. ON TELE HE HAS BEEN SR/ST 90'S-110'S W/O COMPLAINTS OF ANGINA. HIS BP WAS SOFT THIS AM BUT HAS BEEN STABLE SINCE RECIEVING ONE UNIT OF PRBC, MIDODRINE Q8, AND LR @ 150. DR. SHAPRE DOES WANT THE LR D/C'D AFTER THIS CURRENT BAG IS FINISHED INFUSING. KNEE AND LOW BACK PAIN HAS ANSON AN ISSUE FOR EPT, AND WE STARTED HIM ON ORAL PAIN MEDICATION. HE STATED THAT HE THINKS IT HAS HELPED WITH HIS PAIN MORE THAN THE FENTANYL. THE FENTANYL WILL BE USED FOR BREAK THROUGH PAIN. THE PT'S CAME TO [facility] AND HAS BEEN UPDATED ON THE PT'S CONDITION. FIRE IGNITION RISK HAS BEEN ASSESSED.
--- NOTE | 2023-07-29 22:51 | NUR ---
ASSUMPTION OF CARE THIS RN ASSUMED CARE OF PT AT 1900, REPORT FROM AMBER LOUIS. PT RESTING IN HIS ROOM HOWEVER EASILY AWAKENED DURING BEDSIDE REPORT. PT DID PARTICIPATE SOME BUT OTHERWISE JUST LISTENED AND LAID WITH EYES CLOSED. VSS AT THIS TIME. A&O X 4. PT DENIES CP/PRESSURE, SOB, DIZZINESS, N/V. NO SIGNS OF BLEEDING NOTED. PT REPORTS GENERALIZED PAIN IN HIS BACK AND BLE; MEDICATION PER EMAR WELL REPOSITIONING AND ELEVATING LLE. PT ON NC AT TIME OF REPORT, BUT SINCE NAPPING SWITCHED TO CPAP. IVF INFUSING PER EMAR. PT USING URINAL INDEPENDENTLY TO VOID. CALL LIGHT IN REACH AND PT ABLE TO MAKE NEEDS KNOWN.
[2023-07-30] VITALS: BP 124/77
[2023-07-30 04:00] VITALS: BP 119/83
[2023-07-30 04:56] LABS: Hematocrit 26.1 % (37.0-53.0); Hemoglobin 8.7 g/dL (13.5-17.5); Mean Corpuscular HGB 33.5 pg (26.0-34.0); Mean Corpuscular HGB Conc 33.3 g/dL (31.5-36.5); Mean Corpuscular Volume 100 fL (80-100); Mean Platelet Volume 10.8 fL (9.1-12.4); NRBC ABSOLUTE 0.21 K/mm3 (0.00-0.02); NRBC Auto 4.8 /100 WBC (0.0-0.2); Platelet Count 91 K/mm3 (150-400); RDW Coefficient Variation 15.5 % (11.7-14.2); RDW Standard Deviation 56.8 fL (35.1-46.3); White Blood Cell Count 4.36 K/mm3 (4.00-11.30)
[2023-07-30 05:37] LABS: Bun/Creatinine Ratio 23.1 (12.0-20.0); Calcium, Blood 9.4 mg/dL (8.5-10.1); Creatinine, Blood 1.04 mg/dL (0.60-1.20); Potassium, Blood 4.2 mmol/L (3.5-5.5)
[2023-07-30 05:51] LABS: BAND PERCENT MAN 13 % (0-8); BASOPHILS PERCENT MAN 0 % (0-2); EOSINOPHILS PERCENT MAN 0 % (0-6); LYMPHOCYTES ABSOLUTE MAN 0.87 K/mm3 (0.84-5.20); LYMPHOCYTES PERCENT MAN 20 % (21-46); METAMYELOCYTE ABSOLUTE MAN 0.08 K/mm3 (0.00-0.00); METAMYELOCYTE PERCENT MAN 2 % (0-0); MONOCYTES ABSOLUTE MAN 0.87 K/mm3 (0.16-1.47); MONOCYTES PERCENT MAN 20 % (4-13); MYELOCYTE ABSOLUTE MAN 0.08 K/mm3 (0.00-0.00); MYELOCYTE PERCENT MAN 2 % (0-0); NEUTROPHILS ABSOLUTE MAN 2.39 K/mm3 (1.96-9.15); PROMYELOCYTE ABSOLUTE MAN 0.04 K/mm3 (0.00-0.00); PROMYELOCYTE PERCENT MAN 1 % (0-0); SEG NEUTROPHILS PERCENT MAN 42 % (41-73); TOTAL CELLS COUNTED 100
--- NOTE | 2023-07-30 06:08 | NUR ---
SHIFT SUMMARY PT REMAINS A&O X4, COOPERATIVE WITH CARE. VSS T/O SHIFT SBP 120'S, HRR SR IN 80 - 90'S. PT DID NOT HAVE ANY ACUTE EVENTS DURING THE NIGHT. PT ON 3LPM NC, CPAP WITH 6 L 02 WHILE ASLEEP. PT HAS BEEN WEARING CPAP MOST OF THE SHIFT, WITH BREAKS WHEN HE IS AWAKE OR SHORT BREAKS IN BETWEEN. PT AFEBRILE. PT RESTED MOST OF THE SHIFT, PT DECLINED SEVERAL REPOSITIONINGS. STATES "I AM OKAY OR I AM COMFORTABLE". EDUCATION PROVIDED ON PRESSURE SORE PREVENTION. NO BM THIS SHIFT. PT MEDICATED FOR PAIN X1 THROUGH THE NIGHT. PT USING URINAL INDEPENDENTLY IN BED. ABX PER EMAR. CALL LIGHT IN REACH, PT ABLE TO COMMUNICATE NEEDS. WILL UPDATE ONCOMING RN
[2023-07-30 08:02] VITALS: BP 133/89
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
[2023-07-30 16:05] VITALS: BP 125/84
--- NOTE | 2023-07-30 18:13 | NUR ---
PT SUMMARY: PALLIATIVE CARE NURSE PIPO ABLE TO HAVE A DISCUSSION WITH THE PT AND FAMILY TODAY. DECIDED TO HAVE PT FINISH ANTIBIOTICS AND PHYSICAL THERAPY WHILE HERE AT THE HOSPITAL THEN DISCHARGE HOME WITH HOSPICE CARE POSSIBLY ON Sunday08/01/23. PT TRANSITIONED TO MEDICAL NO TELE. VITALS HAS BEEN STABLE. SATS ABOVE 95% ON 3L OF O2, PT GETS ANXIOUS WHEN MOVING AROUND OR LIFTING PT UP IN THE CHAIR REQUESTING O2 T GET TURNED UP TO 5L, PT TOLERATING WELL SATS MAINTAINED. PT ABLE TO WORK WITH THERAPY STILL RECOMMENDING LIFT AT THIS TIME. PT CONTINUES ON IV ABO. MEDICATED ONCE FOR KNEE AND BACK PAIN, PT REPORTS EFFECTIVENESS. PT HAS BEEN UP IN THE RECLINER SINCE LUNCH TIME. BED BATH COMPLETED FOR THE SHIFT. PT HAS BEEN USING URINAL TO VOID, TOLERATING DIET. PT HAS BEEN CALLING APPROPRIATELY, WILL REPORT TO ONCOMING SHIFT
[2023-07-30 20:00] VITALS: BP 148/84
--- NOTE | 2023-07-30 21:38 | NUR ---
ASSUMPTION OF CARE THIS RN ASSUMED CARE OF PT AT 1900, REPORT FROM LIDIA LOUIS. PT A&O X4. PT UP IN THE BEDSIDE RECLINER WATCHING TV AT THIS TIME. VSS. PT DENIES CP OR PRESSURE, SOB, DIZZINESS. PT AFEBRILE. ON 5 L LPM NC AT THIS TIME, CPAP AT BEDSIDE. PT STATES HE HAD A "PRETTY GOOD DAY AND LOOKING FOWARD TO HEADING HOME SOON" HE AND FAMILY DISCUSSED PLAN OF CARE AND DISCHARGE THIS AFTERNOON. PT REPORTS HE IS "PRETTY TIRED TODAY" FROM WORKING WITH PT. PT DENIES NEEDS OR CONCERNS AT THIS TIME. CALL LIGHT IN REACH
[2023-07-30 23:41] VITALS: BP 143/88
[2023-07-31 04:00] VITALS: BP 101/72
--- NOTE | 2023-07-31 05:50 | NUR ---
SHIFT SUMMARY PT REMAINS A&O X4. VSS T/O SHIFT; 0000 MIDODRINE HELD D/T SBP 140'S. PT REMAINS ON 5 LPM NC AND CPAP WHILE SLEEPING. PT HAD UNEVENTFUL NIGHT AND SLEPT WELL THROUGHOUT. PT REPOSITIONED WITH LIFT Q2 OR PRN, PT DECLINES AT TIMES. PT STILL USING URINAL IN BED INDEPENDENTLY. PT'S L HAND EDEMATOUS, EXTREMITY ELEVATED. PT STATES "SOMETIMES THIS HAPPENS IF ARM IS NOT ELEVATED ENOUGH". PT CURRENTLY RESTING. CALL LIGHT IN REACH, PT ABLE TO VERBALIZE ALL NEEDS. WILL UPDATE ONCOMING RN
[2023-07-31 07:00] VITALS: BP 120/77
--- NOTE | 2023-07-31 08:20 | NUR ---
Received report from NOC RN. Patient sleeping when entering room and awakens easily. He is alert and slow to answer and speech at times difficult to understand. he is humerous with answers. He is on 5L O2 via NC and sats 100% andreduced O2 to 4L and continues to sat in upper 90%'s. He has limited to right side and needs to be repositioned frequently. He has 18ga PG to GERRI flushed and SL'd. He has bilateral LE SCD in place. Plan is home with hospice tomorrow.
--- NOTE | 2023-07-31 11:23 | NUR ---
Patient did own oral care and used urinal and had 300 mls clear yellow urine. He wanted to be up in chair and is tolerating well, used lift. He tolerated am meds and breakfast well. Family at bedside and Dr Gonzalez came and talked with them. They were concerned about discharge and career services coordinator Aura LOUIS went to re assure them things were in motion. Urinal and call light with reach of right hand.
--- NOTE | 2023-07-31 15:30 | NUR ---
Patient has been resting off and on. He wanted to go back to bed after about 15 minutes we were able to satisfy his comfort and RT placed CPAP on. About an hour later he he stated CPAP was bothering him and wanted to get back in chair, intermitently falling asleep. He remains in Bed on 4L O2 via NC and sats >90%. He awoke and is able to use urinal independently.
[2023-07-31 17:11] VITALS: BP 168/93
--- NOTE | 2023-07-31 18:33 | NUR ---
Patient remains up in chair, tolerated dinner well. He used urinal and had 200 mls out. He uses eright side well and flaccid on left. He is very particular about everything just right for him to reach. he remains oriented and able to communicate needs with some humor. He continues on 4L O2 via NC and sats >90%. Left arm elevated with several pillows to reduce swelling. He is moving to [facility] and nutrse will call when ready for report.
--- NOTE | 2023-07-31 20:31 | NUR ---
PATIENT TRANSFER FROM U 020. REPORT TAKEN FROM LILLIAN LOUIS. ARRIVE VIA RECLINER AND LIFT PATIENT. PATIENT LIFT INTO BED WITH FOUR ASSIST. PERSONAL BELONGINGS WITH PATIENT. ON 3L O2 NC. PATIENT ON BED PHAM AT THIS TIME. CHRISTEL.
[2023-07-31 23:33] VITALS: BP 136/82
[2023-08-01] MEDS ORDERED: ALUM-MAG HYDROX30 M2 PO (01:32)
[2023-08-01 02:50] VITALS: BP 127/78
--- NOTE | 2023-08-01 04:28 | NUR ---
SHIFT SUMMARY PATIENT HAD NO ACUTE CHANGES. AXOX 4 AND BEDREST/LIFT PATIENT. Q2 TURNS. POWERGLIDE TOMMY ARM SLOW TO FLUSH. IV ABX INFUSED. ON 3L O2 NC AND USES CPAP WITH 5L O2 BLEED IN. DENIES CHEST PAIN, SOB, AND N/V. VSS/AFEBRILE. USES URINAL AT BEDSIDE. CALL LIGHT IN REACH. BED IN LOWEST POSITION. WILL CONTINUE TO MONITOR UNTIL DAY SHIFT NURSE ASSUMES CARE.
[2023-08-01 07:25] VITALS: BP 112/67
[2023-08-01] MEDS ORDERED: DOCU100 PO (08:06)
[2023-08-01] MEDS ORDERED: Acetaminophen650 M1 PO (08:06)
[2023-08-01] MEDS ORDERED: MICONAZOLE NIT130 GM TOP (08:07)
[2023-08-01] MEDS ORDERED: OXYC5 PO (08:07)
[2023-08-01] MEDS ORDERED: SENN187 PO (08:08)
--- NOTE | 2023-08-01 11:15 | NUR ---
DISCHARGE INSTRUCTIONS DISCUSSED WITH PT-UNABLE TO SIGN DUE TO MS CONDTION. NODDED HEAD IN UNDERSTANDING. WAS UP IN RECLINER CHAIR SINCE BRREAKFAST USING ROOM LIFT FOR PT COMFORT. LEGS DEPENDENT AND SWOLLEN. [facility] HERE TO PICK PT UP. AWARE OF RETURN HOME.
--- NOTE | 2023-08-01 11:50 | NUR ---
Supportive visit with Prakash, whom welcomes visit. Prakash is up in chair floated on pillows with oxygen flowing via NC. Prakash reports dyspnea is currently at an acceptable level for him. He is likely at his new baseline. reports pt fatigues with any movement. He is total care at this time. , son and DIL are very supportive. They all are looking forward to going home with hospice on 08/01/23. Prakash expressed he would like to go home today 07/31/23. This PC RN educated on the importance of remaining in the hospital until hospice can meet him as he is discharged to avoid exacerbation of pain/dyspnea that would be unmanagable at home, requiring him to return to the Emergency Dept. Prakash is reluctantly agreeable to another night. Per Care Management, discharge home with hospice is on track for 08/01/23 with transpertation scheduled for 1000. Will remain available as needed.
--- NOTE | 2023-08-01 15:00 | NUR ---
CLARIFICATION OF DISCHARGE INSTRUCTIONS AND MEDICATIONS. [facility] ADMITTING RN, SWETA CALLED WITH SPOUSE ON SPEAKER PHONE. REVIEWED D/C INFORMATION. THEY HAVE NO FURTHER QUESTIONS AT THIS TIME.
== END 2023-08-01 11:26 | disposition hospice, home (50) | DRG 808 ==
LOC: ER 08:25 → PCU 15:08 → MEDS 07-31 20:16
PROVIDERS: Physician Assistant; ADMIT Internal Medicine
PROC: 5A09357 Assistance with Respiratory Ventilation, Less than 24 Consecutive Hours, Continuous Positive Airway Pressure (ICD-10-PCS; principal; 2023-07-28)
PROC: 3E033XZ Introduction of Vasopressor into Peripheral Vein, Percutaneous Approach (ICD-10-PCS; 2023-07-28)
PROC: 30233N1 Transfusion of Nonautologous Red Blood Cells into Peripheral Vein, Percutaneous Approach (ICD-10-PCS; 2023-07-29)
DX: D61.810 Antineoplastic chemotherapy induced pancytopenia (principal); G93.6 Cerebral edema; J96.01 Acute respiratory failure with hypoxia; J98.11 Atelectasis; C71.8 Malignant neoplasm of overlapping sites of brain; D84.9 Immunodeficiency, unspecified; Z51.5 Encounter for palliative care; Z66 Do not resuscitate; G35 Multiple sclerosis; K21.9 Gastro-esophageal reflux disease without esophagitis; I95.9 Hypotension, unspecified; R54 Age-related physical debility; I10 Essential (primary) hypertension; T45.1X5A Adverse effect of antineoplastic and immunosuppressive drugs, initial encounter; Z99.81 Dependence on supplemental oxygen; Z79.52 Long term (current) use of systemic steroids; Z92.3 Personal history of irradiation
CPT/HCPCS: 36415; 51701; 71045; 71260; 80048; 80053; 81001; 83605; 83735; 83880; 85014; 85018; 85025; 85379; 86850; 86900; 86901; 86920; 87086; 93005; 93010; 94660; 94762; 96361-59; 96365-59; 96375-59; 96376-59; 97110; 97162; 97530; 99285-25; A9270; C9113; J1100; J1170; J2543; J3010; J3370; J3480; J7030; J7050; J7060; J7120; P9016; Q9967